=== PATIENT | male | born 1940 | race Caucasian/White ===

== ENCOUNTER 2016-09-25 08:57 | Emergency (ER) | payer MEDICARE ==
[~2016-09-25] VITALS: Ht 172.7 cm; Wt 81.8 kg
[~2016-09-25 08:57] MED LIST: EPINEPHrine 1:10,000 [1 MG/10 ML] SYRINGE IVP ONE
[2016-09-25 09:10] VITALS: BP 71/41
[2016-09-25] MEDS ORDERED: PHENYLEPHRINE 200 MG/D5%-WATER 250 ML IV ONE (09:24)
[2016-09-25] MEDS ORDERED: PHENYLEPHRINE 200 MG/D5%-WATER 250 ML IV PRN (09:30)
[2016-09-25] MEDS ORDERED: OS500 PO (10:04)
[2016-09-25] MEDS ORDERED: CARV6.2534 PO (10:04)
[2016-09-25] MEDS ORDERED: ATOR20TA65 PO (10:04)
[2016-09-25] MEDS ORDERED: CHOL2000 PO (10:04)
[2016-09-25] MEDS ORDERED: GLYB1.253 PO (10:04)
[2016-09-25] MEDS ORDERED: ACET325T47 PO (10:04)
[2016-09-25] MEDS ORDERED: FOLI1TAB85 PO (10:04)
[2016-09-25] MEDS ORDERED: SITA25 PO (10:04)
[2016-09-25] MEDS ORDERED: PANT40TA25 PO (10:04)
[2016-09-25] MEDS ORDERED: BUME1TAB12 PO (10:04)
[2016-09-25] MEDS ORDERED: FURO40TA5 PO (10:04)
== END 2016-09-25 10:30 | disposition expired ==
LOC: EMS 08:58
DX: I46.9 Cardiac arrest, cause unspecified (principal); Z86.79 Personal history of other diseases of the circulatory system; Z87.448 Personal history of other diseases of urinary system
CPT/HCPCS: 51702; 82962; 92950; 93005; 99285; J0171; J2370; 94002